=== PATIENT | male | born 1985 | race Caucasian/White ===

== ENCOUNTER → 2017-07-14 | Outpatient (CLI) | payer BC ==
[~2017-07-14] MED LIST: ALBUTEROL-200 PUFFS/ IH; FLOMAX0.4 MG PO
[2017-07-14 08:07] LABS: HEMOGLOBIN 15.6 g/dL (14.1-18.0); LYMPH # 2.3 K/mm3 (0.7-4.5); LYMPH % 27.6 % (10-50)
[2017-07-14 08:23] LABS: BUN 22 mg/dL (7-18)
[2017-07-14 08:24] LABS: GFR (ESTIMATED) 63 ML/MIN (>60)
--- NOTE | 2017-07-14 11:09 | RADIOLOGY REPORT PS360 ---
US GALLBLADDER (ABD LTD) HISTORY: RUQ ABDOMINAL ABSCESS Patient Age: 32 years: MaleOrdering Physician: Rachelle Mantilla APRN TECHNIQUE: Ultrasound right upper quadrant COMPARISON :Previous CT abdomen and pelvis 02/21/2015. FINDINGS Pancreas. Not well seen but grossly unremarkable. Liver. Prominent increased echogenicity throughout reflect a prominent hepatic steatosis/diffuse fatty changes . No biliary ductal dilatation but no focal lesions. Common duct within normal limits measuring up to 3.9 mm at the isabell hepatis. Portal vein normal direction flow and normal diameter 9.9 mm.. Gallbladder. Gallbladder sludge but no discrete shadowing gallstones. Upper normal/Borderline gallbladder wall thickening in some areas. If biliary/ right upper quadrant is persist consider HIDA scan. Right kidney.: Cortex well-maintained with no hydronephrosisl nor mass. Right kidney measuring up to nearly 12 cm length. . Slight focus increased echogenicity at the upper pole right kidney. I doubt but possibly could doubt likely reflects a small 3 x 4 mm calculus. Consider correlation with urinalysis IMPRESSION 1. Gallbladder. Minimal sludge but no discrete shadowing stones. The Gallbladder wall upper normal thickness in some areas 2. Prominent hepatic steatosis 3. Right kidney no hydronephrosis. Question possible 3-4 mm stone upper pole right kidney.
== END ==
LOC: RAD 07-13 09:30
PROVIDERS: Nurse Practitioner Family
DX: K65.1 Peritoneal abscess (principal)

== ENCOUNTER → 2017-07-23 | Outpatient (CLI) | payer BC ==
--- NOTE | 2017-07-23 13:47 | RADIOLOGY REPORT PS360 ---
[facility] HEPATOBILIARY SCAN HISTORY: RUQ PAIN, SLUDGE ORDERING PHYSICIAN: Rachelle Mantilla APRN PATIENT AGE: 32 years COMPARISON: Ultrasound of 07/14/2017 DOSE: 8.3 mCi technetium Choletec Fatty meal with Ensure. No pain reported with fatty meal FINDINGS: Homogeneous activity is present within the hepatic parenchyma. Activity is present in the gallbladder by 10 minutes. Activity is present in the small bowel by 15 minutes. The gallbladder ejection fraction is within normal limits calculated to be 41% The patient did not report pain or other symptoms during the fatty meal. IMPRESSION: Unremarkable hepatobiliary scan and gallbladder ejection fraction. No evidence of common or cystic duct obstruction with normal gallbladder ejection fraction
== END ==
LOC: RAD 10:04
DX: K82.8 Other specified diseases of gallbladder (principal); R10.13 Epigastric pain

== ENCOUNTER → 2017-08-11 | Outpatient (CLI) | payer BC ==
[~2017-08-11] MED LIST changes: +AMOXICILLIN875 MG PO
[2017-08-11 14:14] LABS: BILIRUBIN, INDIRECT 1.54 mg/dL (0-0.9)
== END ==
LOC: LAB 10:57
PROVIDERS: Surgery
DX: R11.2 Nausea with vomiting, unspecified (principal); E80.6 Other disorders of bilirubin metabolism; R05 Cough; Z01.812 Encounter for preprocedural laboratory examination

== ENCOUNTER 2017-08-12 09:14 | Day surgery (SDC) | payer BC ==
[~2017-08-12 09:14] MED LIST changes: -AMOXICILLIN875 MG PO
--- NOTE | 2017-08-12 11:02 | Operative Note ---
Surgeon/Diagnoses Surgeon/Skilled Nursing Facilities Professional(s) Date of procedure: 08/12/17 Surgeon: MD Luma Grace Diagnoses Pre-op diagnosis: Nausea with vomiting Hyperbilirubinemia Cough Post-op diagnosis Same as preoperative diagnoses, with the addition of following: Moderate gastritis Duodenal bulb polyp Procedure Procedure Procedure: Esophagogastroduodenoscopy biopsy Indications: BLANQUITA RAMON is a 32 year-old Male with a history of cough, nausea/vomiting , and mild hyperbilirubinemia. Findings: Gastroesophageal junction at 42 cm Moderate patchy gastritis Inflamed duodenal bulb polyp Lack of relaxation made appropriate evaluation of the gastroesophageal junction difficult (specifically difficult to visualize anatomy specific to possible herniation) Procedure Description: After informed consent was obtained, the patient was taken to the endoscopy suite. IV sedation ensued after he was transferred to the LEFT lateral decubitus position. The gastroscope was advanced. The gastroesophageal junction was at 42 cm. No significant inflammation of the mid and distal esophagus was noted. The stomach was entered. Retroflexion confirmed some inflammation, but lacked appropriate gastric relaxation made true visualization of the anatomy of the gastroesophageal junction difficult. Specifically was difficult to delineate for possible herniation. Moderate gastritis was noted and a biopsy of the antrum was obtained. The pylorus was intubated. A small polypoid area of inflammation was noted in the duodenal bulb and this was biopsied. The location was not felt to be consistent with ampulla. The gastroscope was carefully removed and the patient was transferred to recovery. EBL (ml): 1 Anesthesia: IV sedation with 10 mg of Versed and 200 g fentanyl Complications: No immediate Specimens: Duodenal bulb polyp Antral biopsy Disposition Disposition: Stable to recovery from where he will be discharged home. Repeat liver function tests will be ordered today. He will follow-up next week. at 1100
[2017-08-12 11:34] LABS: BILIRUBIN, INDIRECT 1.11 mg/dL (0-0.9)
[2017-08-12 12:29] VITALS: BP 126/69
== END 2017-08-12 11:50 | disposition home or self-care (01) ==
LOC: SDC 09:14
PROVIDERS: Surgery
PROC: 0DB78ZX Excision of Stomach, Pylorus, Via Natural or Artificial Opening Endoscopic, Diagnostic (ICD-10-PCS; 2017-08-12)
PROC: 0DB98ZX Excision of Duodenum, Via Natural or Artificial Opening Endoscopic, Diagnostic (ICD-10-PCS; principal; 2017-08-12 10:00)
DX: E80.6 Other disorders of bilirubin metabolism (principal); K29.70 Gastritis, unspecified, without bleeding; K31.7 Polyp of stomach and duodenum; R11.2 Nausea with vomiting, unspecified

== ENCOUNTER 2017-08-18 17:50 | Emergency (ER) | payer BC ==
[~2017-08-18] VITALS: Ht 182.9 cm; Wt 145.2 kg
--- OUTSIDE RECORDS SUMMARY | 2017-08-18 17:55 | External Medical Summary Rpt | CCD ---
Author Author [employer] Organization [employer] Address Unknown Phone Unavailable Purpose Continuity of Care Document - through 2016
--- OUTSIDE RECORDS SUMMARY | 2017-08-18 17:56 | External Medical Summary Rpt ---
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 Albumin 3.4 - 5.0 gm/dL No No Aug 12 [Mass/vol informati informati 2017 ume] in on in on in 11:20 AM Serum or source source Plasma data data Alkaline 46 - 116 U/L Normal No Aug 12 phosphata informati 2017 se on in 11:20 AM [Enzymati source c data activity/ volume] in Serum or Plasma Bilirubin 0.0 - 0.2 mg/dL Normal No Aug 12 .direct informati 2017 [Mass/vol on in 11:20 AM ume] in source Serum or data Plasma Bilirubin 0 - 0.9 mg/dL High No Aug 12 .indirect informati 2017 on in 11:20 AM [Mass/vol source ume] in data Serum or Plasma Bilirubin 0.2 - 1.0 mg/dL High No Aug 12 .total informati 2017 [Mass/vol on in 11:20 AM ume] in source Serum or data Plasma Aspartate 15 - 37 U/L Normal No Aug 12 informati 2016 aminotran on in 11:20 AM sferase source [Enzymati data c activity/ volume] in Serum or Plasma Alanine 12 - 78 U/L Normal No Aug 12 aminotran informati 2016 sferase on in 11:20 AM [Enzymati source c data activity/ volume] in Serum or Plasma Protein 6.4 - 8.2 gm/dL Normal No Aug 12 [Mass/vol informati 2017 ume] in on in 11:20 AM Serum or source Plasma data Hepatic function 2000 panel in Serum or Plasma Observa Value Referen Units Interpr Notes Date tion ce etation Range Albumin 3.4 - 5.0 gm/dL Normal No Aug 11 [Mass/vol informati 2017 ume] in on in 10:59 AM Serum or source Plasma data Alkaline 46 - 116 U/L Normal No Jul 18 phosphata informati 2017 se on in 10:59 AM [Enzymati source c data activity/ volume] in Serum or Plasma Bilirubin 0.0 - 0.2 mg/dL High No Aug 11 .direct informati 2017 [Mass/vol on in 10:59 AM ume] in source Serum or data Plasma Bilirubin 0 - 0.9 mg/dL High No Aug 11 .indirect informati 2017 on in 10:59 AM [Mass/vol source ume] in data Serum or Plasma Bilirubin 0.2 - 1.0 mg/dL High No Aug 11 .total informati 2017 [Mass/vol on in 10:59 AM ume] in source Serum or data Plasma Aspartate 15 - 37 U/L Normal No Aug 11 informati 2017 aminotran on in 10:59 AM sferase source [Enzymati data c activity/ volume] in Serum or Plasma Alanine 12 - 78 U/L Normal No Aug 11 aminotran informati 2017 sferase on in 10:59 AM [Enzymati source c data activity/ volume] in Serum or Plasma Protein 6.4 - 8.2 gm/dL Normal No Aug 11 [Mass/vol informati 2017 ume] in on in 10:59 AM Serum or source Plasma data Comprehensive metabolic 2000 panel in Serum or Plasma Observa Value Referen Units Interpr Notes Date tion ce etation Range Albumin/G 1.1 - 1.8 No Low No Sep 20 lobulin informati informati 2017 7:57 [Mass on in on in AM ratio] in source source Serum or data data Plasma Albumin 3.4 - 5.0 gm/dL Normal No Sep 20 [Mass/vol informati 2016 7:57 ume] in on in AM Serum or source Plasma data Alkaline 46 - 116 U/L Normal No Sep 20 phosphata informati 2017 7:57 se on in AM [Enzymati source c data activity/ volume] in Serum or Plasma Bilirubin 0.2 - 1.0 mg/dL High No Sep 20 .total informati 2017 7:57 [Mass/vol on in AM ume] in source Serum or data Plasma Urea 7 - 18 mg/dL High No Sep 20 nitrogen informati 2017 7:57 [Mass/vol on in AM ume] in source Serum or data Plasma Calcium 8.5 - mg/dL Normal No Sep 20 [Mass/vol 10.1 informati 2017 7:57 ume] in on in AM Serum or source Plasma data Chloride 98 - 107 mmoL/L Normal No Sep 20 [Moles/vo informati 2017 7:57 lume] in on in AM Serum or source Plasma data Carbon 21.0 - mmoL/L Normal No Sep 20 dioxide, 32.0 informati 2017 7:57 total on in AM [Moles/vo source lume] in data Serum or Plasma Creatinin 0.70 - mg/dL Normal No Sep 20 e 1.30 informati 2016 7:57 [Mass/vol on in AM ume] in source Serum or data Plasma Estimated >60 ML/MIN No REFERENCE Sep 20 informati RANGE: 2017 7:57 glomerula on in >60 AM r source ML/MIN/1. filtratio data 73 SQUARE n rate METERSIf (GF this patient is -A merican, then multiply theresult by 1.210. Globulin 1.3 - 3.2 gm/dL High No Sep 20 [Mass/vol informati 2017 7:57 ume] in on in AM Serum source data Glucose 74 - 106 mg/dL Normal No Sep 20 [Mass/vol informati 2017 7:57 ume] in on in AM Serum or source Plasma data Potassium 3.5 - 5.1 mmoL/L Normal No Sep 20 informati 2017 7:57 [Moles/vo on in AM lume] in source Serum or data Plasma Sodium 136 - 145 mmoL/L Normal No Sep 20 [Moles/vo informati 2017 7:57 lume] in on in AM Serum or source Plasma data Aspartate 15 - 37 U/L Normal No Sep 20 informati 2017 7:57 aminotran on in AM sferase source [Enzymati data c activity/ volume] in Serum or Plasma Alanine 12 - 78 U/L Normal No Sep 20 aminotran informati 2017 7:57 sferase on in AM [Enzymati source c data activity/ volume] in Serum or Plasma Protein 6.4 - 8.2 gm/dL Normal No Sep 20 [Mass/vol informati 2017 7:57 ume] in on in AM Serum or source Plasma data CBC W Auto Differential panel in Blood Observa Value Referen Units Interpr Notes Date tion ce etation Range Basophils 0 - 0.2 K/MM3 Normal No Sep 20 informati 2016 7:57 [#/volume on in AM ] in source Blood by data Automated count Basophils 0.1 - 2.0 % Normal No Sep 20 /100 informati 2017 7:57 leukocyte on in AM s in source Blood by data Automated count Eosinophi 0.0 - 0.4 K/mm3 Normal No Sep 20 ls informati 2016 7:57 [#/volume on in AM ] in source Blood by data Automated count Eosinophi 0.1 - % Normal No Sep 20 ls/100 12.0 informati 2016 7:57 leukocyte on in AM s in source Blood by data Automated count Granulocy 1.3 - 8.0 K/mm3 Normal No Sep 20 darron informati 2016 7:57 [#/volume on in AM ] in source Blood by data Automated count Granulocy 37.0 - % Normal No Sep 20 darron/100 80.0 informati 2016 7:57 leukocyte on in AM s in source Blood by data Automated count Hematocri 42.0 - % Normal No Sep 20 t [Volume 52.0 informati 2016 7:57 on in AM Fraction] source of Blood data Hemoglobi 14.1 - g/dL Normal No Sep 20 n 18.0 informati 2017 7:57 [Mass/vol on in AM ume] in source Blood data Lymphocyt 0.7 - 4.5 K/mm3 Normal No Sep 20 es informati 2017 7:57 [#/volume on in AM ] in source Unspecifi data ed specimen by Automated count Lymphocyt 10 - 50 % Normal No Sep 20 es informati 2017 7:57 [#/volume on in AM ] in source Unspecifi data ed specimen by Automated count Erythrocy 27 - 31.2 pg High No Sep 20 te mean informati 2016 7:57 corpuscul on in AM ar source hemoglobi data n [Entitic mass] Erythrocy 31.8 - g/dl Normal No Sep 20 te mean 35.4 informati 2017 7:57 corpuscul on in AM ar source hemoglobi data n concentra tion [Mass/vol ume] by Automated count Erythrocy 82.2 - fl Normal No Sep 20 te mean 97.8 informati 2016 7:57 corpuscul on in AM ar volume source [Entitic data volume] by Automated count Monocytes 0.1 - 1.0 K/mm3 Normal No Sep 20 informati 2016 7:57 [#/volume on in AM ] in source Blood by data Automated count Monocytes 1.7 - 9.3 % Normal No Sep 20 /100 informati 2017 7:57 leukocyte on in AM s in source Blood by data Automated count Platelet 7.4 - fl Normal No Sep 20 mean 10.4 informati 2017 7:57 volume on in AM [Entitic source volume] data in Blood by Automated count Platelets 142 - 424 K/mm3 Normal No Sep 20 informati 2017 7:57 [#/volume on in AM ] in source Blood data Erythrocy 4.6 - 6.2 M/mm3 Normal No Sep 20 darron informati 2017 7:57 [#/volume on in AM ] in source Amniotic data fluid Erythrocy 11.5 - % Normal No Sep 20 te 17.5 informati 2017 7:57 distribut on in AM ion width source [Entitic data volume] by Automated count Leukocyte 4.8 - K/MM3 Normal No Sep 20 s 10.8 informati 2017 7:57 [#/volume on in AM ] in source Blood data
--- OUTSIDE RECORDS SUMMARY | 2017-08-18 17:56 | External Medical Summary Rpt | CCD ---
Demographics Preferred Language Guamanian Marital Status Unknown Shinto Affiliation Unknown Race Unknown Ethnic Group Unknown Author Author , [facility] [employer] Address Unknown Phone Immunization No patient found.
--- OUTSIDE RECORDS SUMMARY | 2017-08-18 17:56 | External Medical Summary Rpt ---
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
--- OUTSIDE RECORDS SUMMARY | 2017-08-18 17:56 | External Medical Summary Rpt | CCD ---
Demographics Preferred Language Tristanian Marital Status Unknown Adventism Affiliation Unknown Race Unknown Ethnic Group Unknown Author Author , [facility] Address Unknown Phone Immunization No patient found.
[2017-08-18 18:13] VITALS: BP 130/92
[2017-08-18] MEDS ORDERED: AMOXICILLIN875 MG PO (18:15)
--- NOTE | 2017-08-18 18:16 | Urgent Treatment Center Report ---
History of Present Issue Date/Time Seen by Provider 08/18/17 4999 Visit Reason Pt arrived:Walked Presenting Problem:C/O SORE THROAT/COUGH/FEVER Location if Accident: Onset of symptoms date/time:/ or onset unknown for:MEDICAL HX UNKNOWN Have you (or family members/close friends) recently traveled outside the [place]? N If Yes, where/when: Have you had exposure to infectious disease within the past month? TB? Other? Specify: c/o being woken up this morning at 4 am w/ a terrible sore throat. Denies difficulty swallowing, just painful. Throughout the day, sore throat worsening w / development of fever up to 101, aches, chills. Cough at baseline and not new. Hasn't taken or tried anything for any symptoms. Girlfriend tested positive for strep yesterday. Source patient Exam Limitations no limitations ALLERGIES Coded Allergies: No Known Allergies (07/23/17) Home Medications Active Scripts TAMSULOSIN HCL (Flomax) 0.4 MG PO QHS 30 Days Ref 1 Prov: 01/25/15 Reported Medications Albuterol (Albuterol-Hfa Inhaler) 1 PUFF IH Q4HPRN #1 INH History Medical History General CAD? No Angina: No VA: No Hypertension? No Hyperlipidemia? No CHF? No DVT? No PE? No COPD? No Asthma? Yes Anemia? No GERD? No Gastric ulcers? No GI Bleed? No Hernia? No Thyroid Problems? No Hypothyroidism? No CVA? No Seizures? No Diabetes? No Renal Insuffiency? No UTI? No Stones? No BPH? No GB Disease: No Nephritic Syndrome? No Asplenia? No Hepatitis? No Sickle Cell Disease? No Arthritis? No Migraines? No Cataracts? No Glaucoma? No MRSA? No HIV? No TB? No Anxiety? No Depression? No Cancer? No More? No Immunization HX DT/Tetanus 08/26/13 Surgical Hx Previous Surgery?N Social History Smoking Hx Smoker: Current Every Day Smoker Tobacco: Yes Type Chew Packs/day < 1 Pack Alcohol Alcohol: Yes Review of Systems All Other Systems Reviewed and Negative Constitutional see HPI, malaise Eyes denies drainage ENT see HPI. denies: ear pain, ear discharge, nose discharge, nose congestion, throat swelling. Respiratory see HPI, denies shortness of breath, denies stridor, denies wheezing Cardiovascular denies chest pain Gastrointestinal denies nausea, denies vomiting Musculoskeletal see HPI Skin denies rash Psychiatric/Neurological headache (intermittently today) Physical Exam Vital Signs Vital Signs Date Time Temp Pulse Resp B/P Pulse O2 O2 Flow FiO2 Ox Delivery Rate 08/18 1813 99.8 109 20 130/92 97 08/18 1800 99.8 109 20 130/92 97 General Appearance no apparent distress, obese Eye Exam - bilateral eye normal exam Ear, Nose, Throat pharyngeal erythema, tonsillar swelling (w/o exudate), judi EACs, TMs and nares normal Neck non-tender, supple, full range of motion Respiratory Status No: respiratory distress, productive cough, non productive cough. Lung Sounds anterior: lungs clear. posterior: lungs clear. bilateral: lungs clear. Cardiovascular no peripheral edema, no murmur, tachycardia Neurologic alert, oriented x 3 Mental status normal mood/affect Skin normal color, warm/dry Lymphatic no adenopathy Medical Decision Making LABS/Meds/Orders Pt receiving controlled substance in ED? No Departure Departure Time of Disposition 1812 Disposition DC Home or Self Care(routine) Clinical Impression Primary Impression: Acute tonsillitis Qualifiers: Pharyngitis/tonsillitis etiology: unspecified etiology Qualified Code: J03.90 - Acute tonsillitis, unspecified Secondary Impressions: Exposure to strep throat Condition STABLE Referrals Rachelle Mantilla APRN (Family) IMMEDIATELY for new or worsening symptoms OR no noticeable improvement over the next 72 hours. 911 for difficulty breathing or swallowing. Patient Instructions DI for Pharyngitis/Tonsillopharyngitis -- Adult, DI for Strep Throat Additional Instructions * Your rapid strep test was negative but given your symptoms, exam and known exposure, I am concerned you have strep and will therefore treat you accordingly. As we discussed, if this is not strep and is therefore viral, you will not see an immediate improvement in your symptoms and the use of antibiotics can increase your risk for antibiotic resistance. * Start antibiotic KIMBERLY and be sure to take as ordered for the FULL length of time although you should start to feel better in 24-48 hours. * change toothbrush and toothpaste 24-48 hours after starting antibiotic * Monitor Temp. Tylenol every 4 hours as needed and/or ibuprofen every 6 hours as needed (as long as your primary care doctor has told you that it is ok to take both) for fever/aches/pain. ER if fever no less than 101 despite tylenol and Ibuprofen * Encourage fluids, water, gatorade, powerade, pedialyte if /toddler/child * cold fluids, popsicles, ice cream feel good * you are contagious until you have taken the antibiotic for 24 hours. No school tomorrow. * Avoid kissing anyone, including parents. No eating or drinking after anyone. You are contagious. * * Your throat swab was sent for culture. Those results are typically sent to your primary care. Be sure to follow up in 2-3 days if no improvement so they can review those results and treat if necessary. If you don't have primary care, I recommend you get one but in the mean time, you will have to return to a walk in clinic. Discharge Counseling Counseled pt/family regarding diagnosis, test results, medications/RX, home care, follow up needs Prescriptions Current Visit Scripts AMOXICILLIN (Amoxicillin 875MG Tab) 875 MG PO BID #20 TAB at 1820
== END 2017-08-18 18:17 | disposition home or self-care (01) ==
LOC: UTC 17:50
DX: J03.90 Acute tonsillitis, unspecified (principal); J45.909 Unspecified asthma, uncomplicated; F17.220 Nicotine dependence, chewing tobacco, uncomplicated

== ENCOUNTER → 2017-09-03 | Outpatient (CLI) | payer BC ==
[~2017-09-03] MED LIST changes: +AMOXICILLIN875 MG PO
--- NOTE | 2017-09-03 16:26 | RADIOLOGY REPORT PS360 ---
[facility] GASTRIC EMPTYING(NUCLEAR) HISTORY: N/V/GASTROPARESIS ORDERING PHYSICIAN: GERMAN GRACE MD PATIENT AGE: 32 years DOSE: 0.495 mCi technetium sulfur colloid in radio labeled meal COMPARISON: None FINDINGS: One half emptying time is 46 minutes which is within normal limits of 60 +/- 30 minutes. 66% of the gastric contents had emptied after 60 minutes. The images show no evidence of gastroesophageal reflux. IMPRESSION: Normal gastric emptying scan
== END ==
LOC: RAD 08-30 12:30
DX: R11.2 Nausea with vomiting, unspecified (principal); K31.84 Gastroparesis
CPT/HCPCS: A9541

== ENCOUNTER → 2017-09-08 | Outpatient (CLI) | payer BC ==
[2017-09-08 14:29] LABS: HEMOGLOBIN 14.7 g/dL (14.1-18.0); LYMPH # 1.8 K/mm3 (0.7-4.5); LYMPH % 25.2 % (10-50)
[2017-09-08 15:54] LABS: BUN 15 mg/dL (7-18)
[2017-09-08 16:16] LABS: GFR (ESTIMATED) 77 ML/MIN (>60)
== END ==
LOC: LAB 13:16 → RT 13:16
PROVIDERS: Surgery
DX: K80.00 Calculus of gallbladder with acute cholecystitis without obstruction (principal); Z01.810 Encounter for preprocedural cardiovascular examination; Z01.811 Encounter for preprocedural respiratory examination; Z01.812 Encounter for preprocedural laboratory examination

== ENCOUNTER 2017-09-24 08:16 | Day surgery (SDC) | payer BC ==
[~2017-09-24] VITALS: Ht 185.4 cm; Wt 145.2 kg
--- NOTE | 2017-09-24 13:02 | Operative Note ---
Surgeon/Diagnoses Surgeon/Threat Monitoring Analyst(s) Date of procedure: 09/24/17 Surgeon: MD Luma Grace Diagnoses Pre-op diagnosis: Chronic Cholecystitis Hyperbilirubinemia Umbilical hernia Post-op diagnosis same Procedure Procedure Procedure: Laparoscopic cholecystectomy Liver biopsy Indications: BLANQUITA RAMON is a 32 year-old Male with a history of hernia nausea, RIGHT upper quadrant abdominal pain, radiographic evidence of chronic cholecystitis without calculus, and mild hyperbilirubinemia. Findings: Significant thickening of pericholecystic tissue (in particular...in and around the infundibulum) Procedure Description: After informed consent was obtained, the patient was taken to the operating room and placed in the supine position. General anesthesia was induced and the patient's abdomen was prepped and draped in a sterile fashion. After infiltration with local anesthetic an infraumbilical incision was made. A Veress needle was placed in position. The abdomen was insufflated. A 5 mm optical trocar was placed in position utilizing the umbilical hernia site. Under direct visualization, 2 additional 5 mm trocars were placed in the RIGHT upper quadrant. A 12 mm trocar was placed in the subxiphoid position. The gallbladder was elevated up and over the liver margin. Significant thickening of the tissue in and around the infundibulum was noted. The tissue around the cystic duct was carefully dissected. Clips were placed in what appeared to be the duct. After appropriate clipping and transection, the area was found to be thickening of tissue with small branch vessels. Further evaluation revealed fairly severe thickening of the infundibulum and visualization was difficult. The decision was made to proceed with a "dome down approach". Endoloops (2) repeat utilized to control the duct and transection was made at the infundibulum with harmonic oy. The gallbladder was placed in a retrieval bag and removed through the subxiphoid trocar site. The RIGHT upper quadrant was thoroughly irrigated. No active bleeding or bile leak was noted. A number 10 flat Arpan-Singh drain was placed in the gallbladder fossa and exited through the RIGHT lateral trocar site secondary to concern regarding increased risk for biliary leak at the stomach. Harmonic yo were then utilized to transect a small wedge of liver tissue and this was removed and passed off for pathologic evaluation. The fascia at the subxiphoid trocar site was reapproximated utilizing the connor-close device. Pneumoperitoneum was released as the remaining trocars were removed. All wounds were irrigated and skin was closed with 4-0 Monocryl in a subcuticular fashion. Steri-Strips were applied and the patient's anesthetic agents were reversed. After extubation, the patient was transferred to recovery in stable condition. EBL (ml): 15 Anesthesia: GETA Complications: No immediate Specimens: Gallbladder and contents Liver biopsy Disposition Disposition: Stable to recovery from where he will be discharged home. He will follow up in one week. at 1301
--- NOTE | 2017-09-24 13:12 | Anesthesia Record ---
Anesthesia Record Part I Total IV fluids: 2000 EBL (ml): 15 Urine Output: 0 B/P: 126/73 % SaO2: 95 Pulse: 90 Resps: 16 Temp: 98.5 Patient is: Drowsy, Stable Stable to PACU at: 1305 at 1312
--- NOTE | 2017-09-24 13:12 | Anesthesia Record ---
Anesthesia Record Part II Discharge time: 1335 Destination: Same day surgery PACU nurse assessment review? Yes Patient is: Stable Anesthesia complications? No at 1316
[2017-09-24 15:44] VITALS: BP 138/69
== END 2017-09-24 15:00 | disposition home or self-care (01) ==
LOC: SDC 08:16
PROVIDERS: Surgery
PROC: 0FB04ZX Excision of Liver, Percutaneous Endoscopic Approach, Diagnostic (ICD-10-PCS; 2017-09-24)
PROC: 0FT44ZZ Resection of Gallbladder, Percutaneous Endoscopic Approach (ICD-10-PCS; principal; 2017-09-24 09:45)
DX: K81.1 Chronic cholecystitis (principal); E80.6 Other disorders of bilirubin metabolism
CPT/HCPCS: J0131; J2405; J2710

== ENCOUNTER → 2017-09-29 | Outpatient (CLI) | payer BC ==
[2017-09-29 16:18] LABS: BILIRUBIN, INDIRECT 1.33 mg/dL (0-0.9)
== END ==
LOC: LAB 14:04
PROVIDERS: Surgery
DX: K81.1 Chronic cholecystitis (principal); E80.6 Other disorders of bilirubin metabolism; K76.0 Fatty (change of) liver, not elsewhere classified